=== PATIENT | male | born 1990 | race American Indian/Alaskan Native ===

== ENCOUNTER 2017-10-13 21:42 | Emergency (ER) | payer SELFPAY ==
[2017-10-13] MEDS ORDERED: MOTRIN ONE (22:50)
[2017-10-13] MEDS ORDERED: MOTRIN PO ONE (23:00)
[2017-10-14] MEDS ORDERED: CLEOCIN 600 MG/50 mL 600 MG/50 ML BAG IV ONE (01:32)
[2017-10-14] MEDS ORDERED: MORPHINE IV ONE ×2 (01:32→03:39)
[2017-10-14] MEDS ORDERED: ZOFRAN IV ONE (01:32)
[2017-10-14] MEDS ORDERED: NACL 0.9% 1000 ML 1,000 ML IV ONE (01:34)
--- NOTE | 2017-10-14 02:05 | Emergency Department Report ---
ED ENT HPI - General Chief complaint: Dental/Oral Stated complaint: TOOTHACHE Time Seen by Provider: 10/14/17 01:13 Source: patient Mode of arrival: Ambulatory Limitations: No Limitations - History of Present Illness Initial comments: This is a 27-year-old male nontoxic, well nourished in appearance, no acute signs of distress presents to the ED with c/o of acute or chronic toothache with left-sided facial swelling that occurred yesterday. Patient described pain as aching with level 10/10. Patient denies follow-up with a dentist. Patient denies any chest pain, shortness of breath, fever, chills, nausea, vomiting, headache, stiff neck. Patient stated has not been able to open mouth and has not been eating for 2 days. Patient denies any allergies or significant past medical history. MD complaint: tooth pain -: days(s) (2) Location: tooth # (multiple) 1 - pain Severity: moderate Severity scale (0 -10): 10 Quality: aching Consistency: constant Improves with: none Worsens with: none Context- Dental: history of dental caries, poor dental care Associated Symptoms: pain with swallowing, sore throat. denies: fever, cough, gum swelling, toothache, tinnitus, hearing loss, discharge from ear, rhinorrhea - Related Data Home Medications Medication Instructions Recorded Confirmed Last Taken No Known Home Medications [No 10/13/17 10/13/17 Unknown Reported Home Medications] Allergies Allergy/AdvReac Type Severity Reaction Status Date / Time No Known Allergies Allergy Unverified 10/13/17 22:59 ED Dental HPI - General Chief complaint: Dental/Oral Stated complaint: TOOTHACHE Time Seen by Provider: 10/14/17 01:13 Source: patient Mode of arrival: Ambulatory Limitations: No Limitations - Related Data Home Medications Medication Instructions Recorded Confirmed Last Taken No Known Home Medications [No 10/13/17 10/13/17 Unknown Reported Home Medications] Allergies Allergy/AdvReac Type Severity Reaction Status Date / Time No Known Allergies Allergy Unverified 10/13/17 22:59 ED Review of Systems ROS: Stated complaint: TOOTHACHE Other details as noted in HPI Constitutional: denies: chills, fever Eyes: denies: eye pain, eye discharge, vision change ENT: dental pain. denies: ear pain, throat pain Respiratory: denies: cough, shortness of breath, wheezing Cardiovascular: denies: chest pain, palpitations Endocrine: no symptoms reported Gastrointestinal: denies: abdominal pain, nausea, diarrhea Genitourinary: denies: urgency, dysuria Musculoskeletal: denies: back pain, joint swelling, arthralgia Skin: denies: rash, lesions Neurological: denies: headache, weakness, paresthesias Psychiatric: denies: anxiety, depression Hematological/Lymphatic: denies: easy bleeding, easy bruising ED Past Medical Hx - Past Medical History Previous Medical History?: No - Surgical History Past Surgical History?: No - Social History Smoking Status: Current Every Day Smoker Substance Use Type: None - Medications Home Medications: Home Medications Medication Instructions Recorded Confirmed Last Taken Type No Known Home Medications [No 10/13/17 10/13/17 Unknown History Reported Home Medications] ED Physical Exam - General Limitations: No Limitations General appearance: alert, in no apparent distress - Head Head exam: Present: atraumatic, normocephalic - Eye Eye exam: Present: normal appearance, PERRL, EOMI Pupils: Present: normal accommodation - ENT ENT exam: Present: mucous membranes moist, TM's normal bilaterally, normal external ear exam - Expanded ENT Exam Expanded Ear exam: Present: normal external inspection Mouth exam: Present: normal external inspection, trismus, tongue normal. Absent : drooling, muffled voice, tongue elevation, laceration Teeth exam: Present: dental caries, fractured tooth #, dental tenderness #, gingival enlargement, other (left side lower mandible swelling. No induration or flutance noted. Tender to touch.) 1 - Fractured, Dental Tenderness Throat exam: Positive: normal inspection. Negative: tonsillar erythema, tonsillomegaly, tonsillar exudate, R peritonsillar mass, L peritonsillar mass - Neck Neck exam: Present: normal inspection, full ROM. Absent: tenderness, meningismus, lymphadenopathy - Respiratory Respiratory exam: Present: normal lung sounds bilaterally. Absent: respiratory distress, wheezes, rales, rhonchi, stridor, chest wall tenderness - Cardiovascular Cardiovascular Exam: Present: regular rate, normal rhythm, normal heart sounds. Absent: irregular rhythm, systolic murmur, diastolic murmur, rubs, gallop - GI/Abdominal GI/Abdominal exam: Present: soft, normal bowel sounds - Rectal Rectal exam: Present: deferred - Extremities Exam Extremities exam: Present: normal inspection, full ROM, normal capillary refill - Back Exam Back exam: Present: normal inspection, full ROM - Neurological Exam Neurological exam: Present: alert, oriented X3, normal gait - Psychiatric Psychiatric exam: Present: normal affect, normal mood - Skin Skin exam: Present: warm, dry, intact, normal color. Absent: rash ED Course Vital Signs 10/13/17 10/14/17 10/14/17 22:40 01:49 02:19 Temperature 99.5 F Pulse Rate 85 Respiratory 18 18 18 Rate Blood Pressure 134/89 O2 Sat by Pulse 98 Oximetry - Reevaluation(s) Reevaluation #1: 10/14/17 02:05 Patient is speaking in full sentences with no signs of distress noted. - Consultations Consultation #1: 10/14/17 03:37 Dr. Yan was consulted and agrees to the ED plan of care with transfer with oral and maxillary surgeon to assess patient. Consultation #2: 10/14/17 03:41 [facility] transfer center was consulted. Waiting for [facility] to call back. Consultation #3: 10/14/17 03:55 Dr. Harrington from [facility] was consulted about patient history, physical exam , and CT report and accepts patient to his services. Awaiting transport. ED Medical Decision Making - Lab Data Result diagrams: 10/14/17 02:41 10/14/17 02:41 - Medical Decision Making This is a 27-year-old male that presents with submandibular abscess. Patient is stable and was examined by me. CT with contrast obtained and dictated by the radiologist. Patient is notified of the CT results with normal as noted by the patient. Labs obtained with slightly elevated of WBCs. Patient received 600 mg IV clindamycin, 1 L normal saline, 4 mg IV morphine and 4 IV of Zofran. Patient was consulted with Dr. Galindo and agrees to the ED plan of care and transfer. Patient was accepted by Dr. Harrington from [facility] services. At time of transfer, the patient does not seem toxic or ill in appearance. No acute signs of distress noted. Patient agrees to transfer treatment plan of care. No further questions noted by the patient. Critical care attestation.: If time is entered above; I have spent that time in minutes in the direct care of this critically ill patient, excluding procedure time. ED Disposition Clinical Impression: Submandibular abscess Disposition: DC/TX-70 ANOTHER TYPE HLTHCARE Is pt being admited?: No Condition: Stable Referrals: ROSAS ALCANTARA MD [Primary Care Provider] - 3-5 Days
[2017-10-14 02:55] LABS: Basophils % (Auto) 0.4 % (0.0-1.8); Eosinophils % (Auto) 0.1 % (0.0-4.3); Hematocrit 38.5 % (35.5-45.6); Hemoglobin 13.3 gm/dl (11.8-15.2); Lymphocytes # (Auto) 0.7 K/mm3 (1.2-5.4); Lymphocytes % (Auto) 4.8 % (13.4-35.0); Mean Corpuscular HGB Conc 35 % (32-34); Mean Corpuscular Hemoglobin 30 pg (28-32); Mean Corpuscular Volume 86 fl (84-94); Monocytes # (Auto) 1.7 K/mm3 (0.0-0.8); Monocytes % (Auto) 12.3 % (0.0-7.3); Platelet Count 202 K/mm3 (140-440); Red Blood Count 4.47 M/mm3 (3.65-5.03); Red Cell Distribution Width 13.5 % (13.2-15.2)
[2017-10-14 03:12] LABS: BUN/Creatinine Ratio 12; Blood Urea Nitrogen 14 mg/dL (9-20); Calcium 8.4 mg/dL (8.4-10.2); Hemolysis Index 3
--- NOTE | 2017-10-14 03:31 | Cat Scan Report ---
FINAL REPORT PROCEDURE: CT FACIAL BONES W CON TECHNIQUE: Computerized tomography of the facial bones and soft tissues with axial and coronal sections was performed from the cranial aspect of the frontal sinuses to the caudal portion of the mandible following the IV injection of iodinated nonionic contrast. HISTORY: dental pain with facial swelling COMPARISON: No prior studies are available for comparison. FINDINGS: There is enlargement of the left submandibular gland. There is a central area of low density in the left submandibular gland measuring 2 centimeters in diameter suggesting an abscess. The right submandibular gland is unremarkable. The parotid glands are unremarkable. There is left lateral pharyngeal soft tissue swelling. Tonsillitis not excluded. There is no tonsillar abscess. The adenoid soft tissues, the soft palate, uvula, tongue and epiglottis are unremarkable. There is left submandibular and cervical lymphadenopathy which is most likely reactive. The facial bones are intact. The paranasal sinuses are clear. The mandible and temporomandibular joints are intact. There is no fracture. There is no destructive bony process. IMPRESSION: Left submandibular gland sialoadenitis with 2 centimeter abscess. There is left lateral pharyngeal soft tissue swelling. Tonsillitis not excluded. There is no tonsillar abscess. There is left cervical adenopathy. There is no airway compromise. There is no bony abnormality. The paranasal sinuses are clear.
[2017-10-14] MEDS ORDERED: MORPHINE ONE (03:37)
[2017-10-14 04:16] VITALS: BP 130/75
== END 2017-10-14 06:30 | disposition other institution (70) ==
LOC: ED 21:42
DX: K12.2 Cellulitis and abscess of mouth (principal); F17.200 Nicotine dependence, unspecified, uncomplicated
CPT/HCPCS: 36415; 70487; 80048; 85025; 96365; 96375; 96376; 99285; J2270; J2405; J7030; Q9967

== ENCOUNTER 2017-12-22 03:45 | Emergency (ER) | payer SELFPAY ==
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
[2017-12-22] MEDS ORDERED: PERCOCET 5/325 PO ONE (07:45)
[2017-12-22] MEDS ORDERED: BOOSTRIX IM ONE (07:49)
--- NOTE | 2017-12-22 08:03 | XRay Report ---
LEFT HAND: Trauma, pain. The bony architecture is intact. Bony alignment is normal. No soft tissue abnormalities are seen. The joint spaces appear preserved. IMPRESSION: Normal left hand.
[2017-12-22 08:56] VITALS: BP 152/98
== END 2017-12-22 09:07 | disposition home or self-care (01) ==
LOC: ED 03:45
DX: S61.412A Laceration without foreign body of left hand, initial encounter (principal); F17.200 Nicotine dependence, unspecified, uncomplicated; F12.10 Cannabis abuse, uncomplicated; X58.XXXA Exposure to other specified factors, initial encounter; Y93.89 Activity, other specified; Y92.89 Other specified places as the place of occurrence of the external cause; Y99.8 Other external cause status
CPT/HCPCS: 90471; 90715; 99283

== ENCOUNTER 2018-02-28 18:44 | Emergency (ER) | payer SELFPAY ==
[2018-02-28 19:00] VITALS: BP 142/88
--- NOTE | 2018-02-28 21:37 | Emergency Department Report ---
ED Male HPI - General Chief complaint: Urogenital-Male Stated complaint: BURNING URINATION Time Seen by Provider: 02/28/18 21:24 Source: patient Mode of arrival: Ambulatory Limitations: No Limitations - History of Present Illness Initial comments: This is a 27-year-old female here reports that he needs to be checked for STD due to penile discharge and burning with urination. Burning. He reports he is having urinary burning and this is going on for a few days. Denies any fever or chills. Denies any abdominal pain. Denies any back pain. Burning is 10 out of 10 on with urinating. Pain is gone without urinating. Denies any nausea or vomiting. Patient reports that he was told to get checked for STD because someone that he had sexual activity with was treated for STD but he cannot tell me what. He requested to be treated for gonorrhea and chlamydia. MD Complaint: penile discharge, dysuria Onset/Timin -: days(s) Location: penis Radiation: none Severity: severe Severity scale (0 -10): 10 Quality: burning Consistency: intermittent Improves with: other (after urinating) Worsens with: urination new sexual partner discharge, dysuria. denies: swelling, mass, rash, urinary retention, blood in urine, fever, nausea/vomiting, incontinence - Related Data Sexually active: Yes Previous Rx's Medication Instructions Recorded Last Taken Type Acetaminophen/Codeine [Tylenol 1 tab PO Q6H PRN #12 tab 12/22/17 Unknown Rx /Codeine # 3 tab] Ibuprofen [Motrin] 600 mg PO Q8H PRN #15 tablet 12/22/17 Unknown Rx cephALEXin [Keflex] 500 mg PO Q8HR 7 Days #21 cap 12/22/17 Unknown Rx Allergies Allergy/AdvReac Type Severity Reaction Status Date / Time No Known Allergies Allergy Unverified 10/13/17 22:59 ED Review of Systems ROS: Stated complaint: BURNING URINATION Other details as noted in HPI Constitutional: denies: chills, fever ENT: denies: throat pain Respiratory: denies: cough, shortness of breath, wheezing Cardiovascular: denies: chest pain, palpitations Gastrointestinal: denies: abdominal pain, nausea, vomiting, diarrhea, constipation Genitourinary: dysuria, discharge. denies: urgency, frequency, hematuria, testicular pain, testicular mass Musculoskeletal: denies: back pain, arthralgia Skin: denies: rash, lesions Neurological: denies: headache ED Past Medical Hx - Past Medical History Previous Medical History?: No - Surgical History Past Surgical History?: No - Family History Family history: no significant, hypertension - Social History Smoking Status: Current Some Day Smoker Substance Use Type: Marijuana - Medications Home Medications: Home Medications Medication Instructions Recorded Confirmed Last Taken Type Acetaminophen/Codeine [Tylenol 1 tab PO Q6H PRN #12 tab 12/22/17 Unknown Rx /Codeine # 3 tab] Ibuprofen [Motrin] 600 mg PO Q8H PRN #15 tablet 12/22/17 Unknown Rx cephALEXin [Keflex] 500 mg PO Q8HR 7 Days #21 cap 12/22/17 Unknown Rx ED Physical Exam - General Limitations: No Limitations General appearance: alert, in no apparent distress - Head Head exam: Present: atraumatic, normocephalic, normal inspection - Eye Eye exam: Present: normal appearance, PERRL, EOMI Pupils: Present: normal accommodation - ENT ENT exam: Present: normal exam, normal orophraynx, mucous membranes moist - Neck Neck exam: Present: normal inspection, full ROM. Absent: tenderness, lymphadenopathy - Respiratory Respiratory exam: Present: normal lung sounds bilaterally. Absent: respiratory distress, chest wall tenderness - Cardiovascular Cardiovascular Exam: Present: regular rate, normal rhythm. Absent: normal heart sounds - GI/Abdominal GI/Abdominal exam: Present: soft, normal bowel sounds. Absent: distended, tenderness, guarding, rebound, rigid, organomegaly, mass - Extremities Exam Extremities exam: Present: normal inspection, full ROM, normal capillary refill , other (No cce. + 2 pulses in all extremities, no neurovascular compromise). Absent: tenderness, pedal edema, joint swelling, calf tenderness - Back Exam Back exam: Present: normal inspection, full ROM, other (ambulates without any difficulties). Absent: tenderness, CVA tenderness (R), CVA tenderness (L), rash noted - Neurological Exam Neurological exam: Present: alert, oriented X3, normal gait - Psychiatric Psychiatric exam: Present: normal affect, normal mood - Skin Skin exam: Present: warm, dry, intact, normal color. Absent: rash ED Course Vital Signs 02/28/18 18:57 Temperature 97.5 F L Pulse Rate 75 Respiratory 18 Rate Blood Pressure 142/88 O2 Sat by Pulse 99 Oximetry - Reevaluation(s) Reevaluation #1: 02/28/18 22:02 Patient received azithromycin 1 g by mouth and Rocephin 250 mg IM in emergency room for chlamydia and gonorrhea. Urinalysis negative except he has mucus in his urine. ED Medical Decision Making - Lab Data Lab Results 02/28/18 Range/Units 21:30 Urine Color Yellow (Yellow) Urine Turbidity Clear (Clear) Urine pH 6.0 (5.0-7.0) Ur Specific [place] 1.027 (1.003-1.030) Urine Protein 30 mg/dl (Negative) mg/dL Urine Glucose (UA) Neg (Negative) mg/dL Urine Ketones Neg (Negative) mg/dL Urine Blood Neg (Negative) Urine Nitrite Neg (Negative) Urine Bilirubin Neg (Negative) Urine Urobilinogen 4.0 (<2.0) mg/dL Ur Leukocyte Esterase Sm (Negative) Urine WBC (Auto) 6.0 (0.0-6.0) /HPF Urine RBC (Auto) 7.0 (0.0-6.0) /HPF Urine Mucus 3+ /HPF - Medical Decision Making This is a 27-year-old male here report that he is having urinary burning and with penile discharge over the last 3 days and he has been exposed to STD and wants to be treated for gonorrhea and chlamydia. Patient was seen and examined by myself and physical exam is normal. His urinalysis shows that he has 3+ mucus with some protein otherwise normal. Based on patient's HPI of known contact with someone that was treated for gonorrhea and chlamydia and requested treatment due to penile burning and discharge ,I will go ahead and treat him for gonorrhea and chlamydia. Discussed the patient and he is in agreement. Patient was treated for gonorrhea with 250 milligrams of Rocephin IM and chlamydia with 1 g of azithromycin without any adverse reaction. I discussed immediate follow-up at multiple referrals given to him for hold department nurse [facility] in 7-10 days to get tested for gonorrhea and chlamydia and other STDs . He voiced understanding. Patient discharged home in stable condition, vital signs are stable he is afebrile. Critical care attestation.: If time is entered above; I have spent that time in minutes in the direct care of this critically ill patient, excluding procedure time. ED Disposition Clinical Impression: Abnormal penile discharge, Dysuria, Concern about STD in male without diagnosis Disposition: DC-01 TO HOME OR SELFCARE Is pt being admited?: No Does the pt Need Aspirin: No Condition: Stable Instructions: Dysuria (ED), Sexually Transmitted Diseases (ED), Safe Sex (ED) Additional Instructions: You are treated for gonorrhea and chlamydia and emergency room today. Urine was negative for any bacterial infection. Please follow-up with multiple resources given to include health Department and/ or [facility] in 7-10 days for STD testing. Practice safe sex Refrain from having sexual activity until you know you STD status. Referrals: [facility] [Outside] - 7-10 days [facility] [Outside] - 7-[address] [facility] [Outside] - 7-10 days Forms: Work/School Release Form(ED)
[2018-02-28 21:48] LABS: Bilirubin,Urine NEG (Negative); Blood,Urine NEG (Negative); Color,Urine Yellow (Yellow); Mucus,Urine 3+ /HPF
[2018-02-28] MEDS ORDERED: ZITHROMAX PO ONE (22:01)
[2018-02-28] MEDS ORDERED: ROCEPHIN IM ONE (22:01)
[2018-02-28] MEDS ORDERED: XYLOCAINE 1% MPF 5 mL INFILTRATI ONE (22:01)
== END 2018-02-28 22:35 | disposition home or self-care (01) ==
LOC: ED 18:44
DX: Z20.2 Contact with and (suspected) exposure to infections with a predominantly sexual mode of transmission (principal); F17.200 Nicotine dependence, unspecified, uncomplicated
CPT/HCPCS: 81001; 96372; 99283; J0696